=== PATIENT | male | born 1990 | race Caucasian/White ===

== ENCOUNTER 2018-01-23 11:56 | Emergency (ER) | payer SELFPAY ==
[~2018-01-23] VITALS: Ht 182.9 cm; Wt 63.5 kg
[2018-01-23] MEDS ORDERED: ONDANSETRON 4 MG/2 ML (SDV) Z0FRAN IVP ONE (12:00)
[2018-01-23] MEDS ORDERED: LORazepam INJ 2 MG/ML (ATIVAN) VIAL IVP ONE (12:00)
--- NOTE | 2018-01-23 12:06 | ED General ---
General Stated Complaint: CHEST/ABD PAIN ETOH WITHDRAWAL Source of Information: Patient, EMS, Other (friend) Exam Limitations: No Limitations History of Present Illness Date Seen by Provider: Jan 23, 2018 Time Seen by Provider: 12:01 Initial Comments 27-year-old white male presents with heat exposure from riding in a box car on a train. The patient also is complaining of nausea and vomiting which she relates is from alcohol withdrawal. Patient has had a history of alcohol withdrawal seizures in the past. The patient on cloth tester quality arrival complained of chest pain. This is abated upon arrival in the emergency department. Patient denies associated headache, stiff neck, photophobia, shortness of breath , persistence of his chest pain, or hematemesis, dysuria, flank pain, or melena. Allergies and Home Medications Allergies Coded Allergies: No Known Drug Allergies (Unverified , 01/23/18) Patient Home Medication List Home Medication List Reviewed: Yes Review of Systems Constitutional: No chills, No fever; malaise EENTM: No no symptoms reported Respiratory: No cough Cardiovascular: see HPI, chest pain Gastrointestinal: abdominal pain; No diarrhea; nausea, vomiting Genitourinary: No dysuria Musculoskeletal: No back pain Skin: No change in color Psychiatric/Neurological: Anxiety Hematologic/Lymphatic: No Symptoms Reported Immunological/Allergic: no symptoms reported Past Xcaauhh-[id number]-Vrwbfg Hx Past Med/Social Hx: Reviewed Nursing Past Med/Soc Hx Physical Exam Vital Signs Vital Signs - First Documented 01/23/18 12:25 Temp 98.7 Pulse 79 Resp 18 B/P (MAP) 119/81 (94) Pulse Ox 92 O2 Delivery Room Air Capillary Refill : Height, Weight, BMI Height: '" Weight: lbs. oz. kg; BMI Method: General Appearance: Anxious Eyes: Bilateral Eye Normal Inspection HEENT: Normal ENT Inspection Neck: Normal Inspection Respiratory: Chest Non Tender, Lungs Clear, Normal Breath Sounds Cardiovascular: Regular Rate, Rhythm Gastrointestinal: Normal Bowel Sounds, No Organomegaly, No Pulsatile Mass Back: Normal Inspection Extremity: Normal Inspection Neurologic/Psychiatric: Alert, Oriented x3, No Motor/Sensory Deficits, Normal Mood/Affect Skin: Normal Color, Warm/Dry Progress/Results/Core Measures Suspected Sepsis SIRS Temperature: Pulse: Respiratory Rate: Laboratory Tests 01/23/18 12:05: White Blood Count 4.1L Blood Pressure / Mean: Laboratory Tests 01/23/18 12:05: Platelet Count 185 01/23/18 12:54: Creatinine 0.70, Total Bilirubin 1.3H Results/Orders Lab Results Laboratory Tests Test 01/23/18 12:05 01/23/18 12:54 Range/Units White Blood Count 4.1 L 4.3-11.0 10^3/uL Red Blood Count 4.13 L 4.35-5.85 10^6/uL Hemoglobin 13.7 13.3-17.7 G/DL Hematocrit 38 L 40-54 % Mean Corpuscular Volume 92 80-99 FL Mean Corpuscular Hemoglobin 33 25-34 PG Mean Corpuscular Hemoglobin Concent 36 32-36 G/DL Red Cell Distribution Width 14.3 10.0-14.5 % Platelet Count 185 130-400 10^3/uL Mean Platelet Volume 10.5 H 7.4-10.4 FL Neutrophils (%) (Auto) 74 42-75 % Lymphocytes (%) (Auto) 13 12-44 % Monocytes (%) (Auto) 12 0-12 % Eosinophils (%) (Auto) 0 0-10 % Basophils (%) (Auto) 1 0-10 % Neutrophils # (Auto) 3.0 1.8-7.8 X 10^3 Lymphocytes # (Auto) 0.5 L 1.0-4.0 X 10^3 Monocytes # (Auto) 0.5 0.0-1.0 X 10^3 Eosinophils # (Auto) 0.0 0.0-0.3 10^3/uL Basophils # (Auto) 0.0 0.0-0.1 10^3/uL Sodium Level 139 135-145 MMOL/L Potassium Level 3.4 L 3.6-5.0 MMOL/L Chloride Level 103 98-107 MMOL/L Carbon Dioxide Level 27 21-32 MMOL/L Anion Gap 9 5-14 MMOL/L Blood Urea Nitrogen 6 L 7-18 MG/DL Creatinine 0.70 0.60-1.30 MG/DL Estimat Glomerular Filtration Rate > 60 BUN/Creatinine Ratio 9 Glucose Level 120 H 70-105 MG/DL Calcium Level 9.0 8.5-10.1 MG/DL Total Bilirubin 1.3 H 0.1-1.0 MG/DL Aspartate Amino Transf (AST/SGOT) 96 H 5-34 U/L Alanine Aminotransferase (ALT/SGPT) 62 H 0-55 U/L Alkaline Phosphatase 117 40-136 U/L Total Creatine Kinase 69 30-200 U/L Troponin I < 0.30 <0.30 NG/ML Total Protein 7.7 6.4-8.2 GM/DL Albumin 3.9 3.2-4.5 GM/DL Salicylates Level < 5.0 L 5.0-20.0 MG/DL Acetaminophen Level < 10 L 10-30 UG/ML Serum Alcohol < 10 <10 MG/DL My Orders Orders - ROS MERA MD Lorazepam Injection (Ativan Injection) (01/23/18 12:00) Ondansetron Injection (Zofran Injectio (01/23/18 12:00) Cbc With Automated Diff (01/23/18 11:59) Comprehensive Metabolic Panel (01/23/18 11:59) Ua Culture If Indicated (01/23/18 11:59) Ekg Tracing (01/23/18 11:59) Troponin I (01/23/18 11:59) Creatine Kinase (01/23/18 11:59) Drug Screen Stat (Urine) (01/23/18 12:28) Acetaminophen (01/23/18 12:28) Salicylate (01/23/18 12:28) Alcohol (01/23/18 12:28) Ns Iv 1000 Ml (Sodium Chloride 0.9%) (01/23/18 14:01) Ns Iv 1000 Ml (Sodium Chloride 0.9%) (01/23/18 14:15) Medications Given in ED Current Medications Medications Dose Ordered Sig/Lavonne Route Start Time Stop Time Status Last Admin Dose Admin Lorazepam 2 mg ONCE ONCE IVP 01/23/18 12:00 01/23/18 12:01 DC 01/23/18 12:14 2 MG Ondansetron HCl 4 mg ONCE ONCE IVP 01/23/18 12:00 01/23/18 12:01 DC 01/23/18 12:14 4 MG Vital Signs/I&O 01/23/18 12:25 Temp 98.7 Pulse 79 Resp 18 B/P (MAP) 119/81 (94) Pulse Ox 92 O2 Delivery Room Air Capillary Refill : Progress Note : Time: 16:01 Progress Note Patient received IV Ativan and 2 L of normal saline. Patient responded well to this treatment. Patient elected to depart the emergency department. He left the understanding that he return at any time to the emergency department if he has any further problems or questions. Departure Impression Primary Impression: Alcohol abuse Disposition: 01 HOME, SELF-CARE Condition: Improved Departure-Patient Inst. Decision time for Depature: 16:02 Referrals: NO,LOCAL PHYSICIAN (PCP) Primary Care Physician Patient Instructions: ALCOHOL AND SUBSTANCE ABUSE Add. Discharge Instructions: Return to the Emergency Department at any time if any problems or questions. ROS MERA MD Jan 23, 2018 12:06
[2018-01-23 12:12] LABS: BASOPHILS % (AUTO) 1 % (0-10); EOSINOPHILS % (AUTO) 0 % (0-10); HEMATOCRIT 38 % (40-54); HEMOGLOBIN 13.7 G/DL (13.3-17.7); LYMPHOCYTES # (AUTO) 0.5 X 10^3 (1.0-4.0); LYMPHOCYTES % (AUTO) 13 % (12-44); MEAN CORPUSCULAR HEMOGLOBIN 33 PG (25-34); MEAN CORPUSCULAR HGB CONC 36 G/DL (32-36); MEAN CORPUSCULAR VOLUME 92 FL (80-99); MEAN PLATELET VOLUME 10.5 FL (7.4-10.4); MONOCYTES # (AUTO) 0.5 X 10^3 (0.0-1.0); MONOCYTES % (AUTO) 12 % (0-12); NEUTROPHILS % (AUTO) 74 % (42-75); PLATELET COUNT 185 10^3/uL (130-400); RED BLOOD COUNT 4.13 10^6/uL (4.35-5.85); RED CELL DISTRIBUTION WIDTH 14.3 % (10.0-14.5); WHITE BLOOD COUNT 4.1 10^3/uL (4.3-11.0)
[2018-01-23 13:31] LABS: ALANINE AMINOTRANSFERASE 62 U/L (0-55); ALBUMIN 3.9 GM/DL (3.2-4.5); ALKALINE PHOSPHATASE 117 U/L (40-136); BILIRUBIN,TOTAL 1.3 MG/DL (0.1-1.0); BUN/CREATININE RATIO 9; CARBON DIOXIDE 27 MMOL/L (21-32); CHLORIDE 103 MMOL/L (98-107); CREATINE KINASE 69 U/L (30-200); GFR ESTIMATED > 60; GLUCOSE 120 MG/DL (70-105); POTASSIUM 3.4 MMOL/L (3.6-5.0); SODIUM 139 MMOL/L (135-145); TOTAL PROTEIN 7.7 GM/DL (6.4-8.2)
[2018-01-23 13:32] LABS: ACETAMINOPHEN < 10 UG/ML (10-30); SALICYLATE < 5.0 MG/DL (5.0-20.0)
[2018-01-23] MEDS ORDERED: NS IV 1000 ML 1,000 ML ONE (14:01)
[2018-01-23] MEDS ORDERED: NS IV 1000 ML 1,000 ML IV SCH (14:15)
[2018-01-23 16:15] VITALS: BP 119/81
== END 2018-01-23 16:15 | disposition home or self-care (01) ==
LOC: ER 11:59
DX: F10.10 Alcohol abuse, uncomplicated (principal)
CPT/HCPCS: 36415; 80053; 80320; 80329; 82550; 84484; 85025; 93005; 96361; 96374; 96375

== ENCOUNTER 2018-01-27 20:35 | Emergency (ER) | payer SELFPAY ==
[~2018-01-27] VITALS: Ht 182.9 cm; Wt 68.0 kg
[2018-01-27 20:37] VITALS: BP 115/78
[2018-01-27] MEDS ORDERED: LACTATED RINGERS 1,000 ML IV ONE (20:44)
[2018-01-27 21:00] LABS: BASOPHILS # (AUTO) 0.1 10^3/uL (0.0-0.1); BASOPHILS % (AUTO) 1 % (0-10); EOSINOPHILS # (AUTO) 0.2 10^3/uL (0.0-0.3); EOSINOPHILS % (AUTO) 4 % (0-10); HEMATOCRIT 38 % (40-54); HEMOGLOBIN 13.6 G/DL (13.3-17.7); LYMPHOCYTES # (AUTO) 1.9 X 10^3 (1.0-4.0); LYMPHOCYTES % (AUTO) 32 % (12-44); MEAN CORPUSCULAR HEMOGLOBIN 34 PG (25-34); MEAN CORPUSCULAR HGB CONC 36 G/DL (32-36); MEAN CORPUSCULAR VOLUME 95 FL (80-99); MEAN PLATELET VOLUME 9.6 FL (7.4-10.4); MONOCYTES # (AUTO) 0.7 X 10^3 (0.0-1.0); MONOCYTES % (AUTO) 13 % (0-12); NEUTROPHILS % (AUTO) 51 % (42-75); PLATELET COUNT 151 10^3/uL (130-400); RED BLOOD COUNT 4.02 10^6/uL (4.35-5.85); RED CELL DISTRIBUTION WIDTH 14.9 % (10.0-14.5); WHITE BLOOD COUNT 5.8 10^3/uL (4.3-11.0)
--- NOTE | 2018-01-27 21:00 | ED General ---
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" --ORIGINALLY FROM [facility] STATES HE JUST GOT INTO TOWN AND THEN CALLED EMS PT STATES HE HAS CIRRHOSIS AND HEPATITIS C AND STATES "MY LIVER HURTS" AND "I BEEN DRINKIN' TOO MUCH" PT ALSO STATES HE IS IV DRUG USER--MAINLY METH/"ICE" AND HEROIN, BUT STATES "I' VE DONE EVERYTHING"--STATES COCAINE, PCP, MARIJUANA--"EVERYTHING" CLAIMS HE HAS NOT HAD ANY DRUGS FOR 3-4 WEEKS, STATING "I JUST DRINK ALL THE TIME" Allergies and Home Medications Allergies Coded Allergies: No Known Drug Allergies (Unverified , 01/23/18) Patient Home Medication List Home Medication List Reviewed: Yes Review of Systems Constitutional: no symptoms reported Respiratory: no symptoms reported Cardiovascular: no symptoms reported Gastrointestinal: see HPI, abdominal pain ("MY LIVER HURTS" ); No nausea, No vomiting Genitourinary: no symptoms reported Musculoskeletal: no symptoms reported Skin: no symptoms reported Psychiatric/Neurological: No Symptoms Reported Hematologic/Lymphatic: No Symptoms Reported Immunological/Allergic: no symptoms reported Past Rngeequ-Jiznph-Ssnszn Hx Patient Social History Alcohol Use: Regular Use (1/2- 1 GALLON OF VODKA/DAY) Alcohol Beverage of Choice: Whiskey, Vodka Recreational Drug Use: Yes (+ IV METH/"ICE, HEROIN, COCAINE, OTHERS. ALSO PCP, THC--"I'VE DONE EVERYTHING" ) Drug of Choice: HEROIN OR "WHATEVER IS PUT IN FRONT OF ME" Smoking Status: Current Everyday Smoker (1 PPD) Type Used: Cigarettes (1 PPD) 2nd Hand Smoke Exposure: Yes Recent Hopitalizations: No Seasonal Allergies Seasonal Allergies: No Past Medical History Surgeries: No Respiratory: No Cardiac: No Neurological: No Genitourinary: No Gastrointestinal: Yes (HEPATITIS C --NO TREATMENT) Liver Disease/Jaundice, Hepatitis, Cirrhosis Musculoskeletal: No Endocrine: No HEENT: No Cancer: No Psychosocial: No Integumentary: No Blood Disorders: No Physical Exam Vital Signs Vital Signs - First Documented 01/27/18 20:37 Temp 98.0 Pulse 102 Resp 20 B/P (MAP) 115/78 (90) Pulse Ox 96 O2 Delivery Room Air Capillary Refill : Height, Weight, BMI Height: 6'0" Weight: 140lbs. 0oz. [id number]; BMI Method:Stated General Appearance: Other (FILTHY, MALODOROUS, SPEECH VERY SLIGHTLY SLURRED. ) HEENT: PERRL/EOMI, Other (POOR DENTITION) Neck: Normal Inspection Respiratory: Normal Breath Sounds, No Accessory Muscle Use, No Respiratory Distress Cardiovascular: Regular Rate, Rhythm, No Edema, No JVD, No Murmur, Normal Peripheral Pulses Gastrointestinal: Normal Bowel Sounds, Non Tender, Soft Back: Normal Inspection Extremity: Normal Inspection Neurologic/Psychiatric: Alert, Oriented x3, No Motor/Sensory Deficits, Normal Mood/Affect, site medical director II-XII Norm as Tested Skin: Normal Color, Warm/Dry, Tattoos/Piercings (EXTENSIVE TATTOOS ALL OVER BODY, INCLUDING MULTIPLE TATTOOS ON FACE) Progress/Results/Core Measures Suspected Sepsis SIRS Temperature: Pulse: Respiratory Rate: Laboratory Tests 01/27/18 20:45: White Blood Count 5.8 Blood Pressure / Mean: Laboratory Tests 01/27/18 20:45: Creatinine 0.80, INR Comment 0.9, Platelet Count 151, Total Bilirubin 0.5 Results/Orders Lab Results Laboratory Tests Test 01/27/18 20:45 Range/Units White Blood Count 5.8 4.3-11.0 10^3/uL Red Blood Count 4.02 L 4.35-5.85 10^6/uL Hemoglobin 13.6 13.3-17.7 G/DL Hematocrit 38 L 40-54 % Mean Corpuscular Volume 95 80-99 FL Mean Corpuscular Hemoglobin 34 25-34 PG Mean Corpuscular Hemoglobin Concent 36 32-36 G/DL Red Cell Distribution Width 14.9 H 10.0-14.5 % Platelet Count 151 130-400 10^3/uL Mean Platelet Volume 9.6 7.4-10.4 FL Neutrophils (%) (Auto) 51 42-75 % Lymphocytes (%) (Auto) 32 12-44 % Monocytes (%) (Auto) 13 H 0-12 % Eosinophils (%) (Auto) 4 0-10 % Basophils (%) (Auto) 1 0-10 % Neutrophils # (Auto) 3.0 1.8-7.8 X 10^3 Lymphocytes # (Auto) 1.9 1.0-4.0 X 10^3 Monocytes # (Auto) 0.7 0.0-1.0 X 10^3 Eosinophils # (Auto) 0.2 0.0-0.3 10^3/uL Basophils # (Auto) 0.1 0.0-0.1 10^3/uL Prothrombin Time 12.3 12.2-14.7 SEC INR Comment 0.9 0.8-1.4 Activated Partial Thromboplast Time 25 24-35 SEC Sodium Level 145 135-145 MMOL/L Potassium Level 3.5 L 3.6-5.0 MMOL/L Chloride Level 107 98-107 MMOL/L Carbon Dioxide Level 29 21-32 MMOL/L Anion Gap 9 5-14 MMOL/L Blood Urea Nitrogen 4 L 7-18 MG/DL Creatinine 0.80 0.60-1.30 MG/DL Estimat Glomerular Filtration Rate > 60 BUN/Creatinine Ratio 5 Glucose Level 104 70-105 MG/DL Calcium Level 8.9 8.5-10.1 MG/DL Magnesium Level 1.9 1.8-2.4 MG/DL Total Bilirubin 0.5 0.1-1.0 MG/DL Aspartate Amino Transf (AST/SGOT) 145 H 5-34 U/L Alanine Aminotransferase (ALT/SGPT) 91 H 0-55 U/L Alkaline Phosphatase 126 40-136 U/L Total Protein 7.5 6.4-8.2 GM/DL Albumin 3.7 3.2-4.5 GM/DL Amylase Level 73 25-125 U/L Lipase 96 H 8-78 U/L Salicylates Level < 5.0 L 5.0-20.0 MG/DL Acetaminophen Level < 10 L 10-30 UG/ML Serum Alcohol 381 *H <10 MG/DL My Orders Orders - PATRICA MCGEE DO Saline Lock/Iv-Start (01/27/18 20:44) Monitor-Rhythm Ecg Trace Only (01/27/18 20:44) Acetaminophen (01/27/18 20:44) Alcohol (01/27/18 20:44) Amylase (01/27/18 20:44) Cbc With Automated Diff (01/27/18 20:44) Comprehensive Metabolic Panel (01/27/18 20:44) Drug Screen Stat (Urine) (01/27/18 20:44) Lipase (01/27/18 20:44) Magnesium (01/27/18 20:44) Protime With Inr (01/27/18 20:44) Partial Thromboplastin Time (01/27/18 20:44) Salicylate (01/27/18 20:44) Ua Culture If Indicated (01/27/18 20:44) Saline Lock/Iv-Start (01/27/18 20:44) Lactated Ringers (Lr 1000 Ml Iv Solution (01/27/18 20:44) Medications Given in ED Current Medications Medications Dose Ordered Sig/Lavonne Route Start Time Stop Time Status Last Admin Dose Admin Lactated Ringer's 1,000 ml @ 0 mls/hr Q0M ONCE IV 01/27/18 20:44 01/27/18 20:45 DC 01/27/18 21:19 1,000 MLS/HR Vital Signs/I&O 01/27/18 20:37 Temp 98.0 Pulse 102 Resp 20 B/P (MAP) 115/78 (90) Pulse Ox 96 O2 Delivery Room Air Capillary Refill : Progress Note : Progress Note PT ANXIOUS TO LEAVE, EVEN BEFORE FIRST LITER OF FLUIDS INFUSED PT REFUSES TO GIVE URINE SAMPLE PT RECEIVED 2 LITERS OF FLUIDS IN ER PT INSISTS ON LEAVING--AMA PAPERS SIGNED SPEECH CLEAR AND GAIT STEADY ON EXITING ER Departure Impression Primary Impression: Alcohol abuse Additional Impressions: Alcohol intoxication in active alcoholic History of intravenous drug abuse Homeless Disposition: 07 AGAINST MEDICAL ADVICE Condition: Against Medical Advice Departure-Patient Inst. Referrals: NO,LOCAL PHYSICIAN (PCP/Family) Primary Care Physician PATRICA MCGEE DO Jan 27, 2018 21:00
[2018-01-27 21:29] LABS: ALANINE AMINOTRANSFERASE 91 U/L (0-55); ALBUMIN 3.7 GM/DL (3.2-4.5); ALKALINE PHOSPHATASE 126 U/L (40-136); AMYLASE 73 U/L (25-125); BILIRUBIN,TOTAL 0.5 MG/DL (0.1-1.0); BUN/CREATININE RATIO 5; CALCIUM 8.9 MG/DL (8.5-10.1); CARBON DIOXIDE 29 MMOL/L (21-32); CHLORIDE 107 MMOL/L (98-107); GFR ESTIMATED > 60; GLUCOSE 104 MG/DL (70-105); LIPASE 96 U/L (8-78); MAGNESIUM 1.9 MG/DL (1.8-2.4); POTASSIUM 3.5 MMOL/L (3.6-5.0); SALICYLATE < 5.0 MG/DL (5.0-20.0); SODIUM 145 MMOL/L (135-145); TOTAL PROTEIN 7.5 GM/DL (6.4-8.2)
[2018-01-27 21:37] LABS: INR 0.9 (0.8-1.4); PROTHROMBIN TIME PATIENT 12.3 SEC (12.2-14.7)
[2018-01-27 21:40] LABS: ACETAMINOPHEN < 10 UG/ML (10-30)
== END 2018-01-27 21:58 | disposition left against medical advice (07) ==
LOC: EDUNIT# 20:35 → ER 20:36
DX: B19.20 Unspecified viral hepatitis C without hepatic coma (principal); F10.129 Alcohol abuse with intoxication, unspecified; F15.10 Other stimulant abuse, uncomplicated; F12.10 Cannabis abuse, uncomplicated; F14.10 Cocaine abuse, uncomplicated; F11.10 Opioid abuse, uncomplicated; F17.210 Nicotine dependence, cigarettes, uncomplicated; Z87.19 Personal history of other diseases of the digestive system; Z59.0 Homelessness
CPT/HCPCS: 36415; 80053; 80320; 80329; 82150; 83690; 83735; 85025; 85610; 85730; 96360